=== PATIENT | female | born 1955 | race Caucasian/White ===

== ENCOUNTER → 2017-08-16 | Outpatient (CLI) | payer OTHER ==
[~2017-08-16] MED LIST: ESTR1VAG6 VG; EXE25PT PO; FLUO-176 PO; FLUO10TA24 PO; FLUO20TA2 PO; VEN75 PO; VENL37.53 PO; ZOST19404 IM
[2017-08-16 08:25] LABS: PLATELET COUNT, AUTOMATED 252 K/uL (150-450)
[2017-08-16 08:40] LABS: LDL CHOLESTEROL 115 mg/dl
== END ==
LOC: LAB 08:10
PROVIDERS: ATTEND Nurse Practitioner Family
DX: Z00.00 Encounter for general adult medical examination without abnormal findings (principal); Z79.899 Other long term (current) drug therapy; F41.8 Other specified anxiety disorders
CPT/HCPCS: 36415; 82040; 82247; 82310; 82374; 82435; 82465; 82565; 82947; 83718; 84075; 84132; 84155; 84295; 84443; 84450; 84460; 84478; 84520; 85025

== ENCOUNTER → 2017-10-11 | Outpatient (CLI) | payer OTHER ==
--- NOTE | 2017-10-11 10:05 | RADIOLOGY IMAGING REPORT ---
FACILITY: [facility] [place] PATIENT NAME: Sayra Davis : 1955 MR: [id number] V: [id number] EXAM DATE: ORDERING PHYSICIAN: HECTOR TORRES TECHNOLOGIST: Location: [facility] Patient: Sayra Davis : 1955 Visit/Account:[id number] Date of Sevice: 10/11/2017 DEXA Scan Clinical history: Postmenopausal screening. Comparison: DEXA scan from 03/31/2012. LUMBAR SPINE: The bone mineral density (BMD) measured from L1-L4 correlates with a Z-score of -1.3 and a T-score of -2.7 which is osteoporosis as defined by the World Health Organization. The corresponding risk of f racture in the lumbar spine is 6-8 times increased compared with a young adult reference population. This value has decrease by 5.7 % since the prior study. More than 5% change is considered significa nt. HIP: Bone mineral density (BMD) measured in the LEFT total hip region correlates with a Z-score -0.5 and a T-score of -1.5 which is osteopenia as defined by the World Health Organization. The corresponding risk of fracture in the hip is 3 times increased compared to a young adult reference population. This value has decrease by 4.9 % since the prior study. More than 5% change is considered significant. T score left femoral neck -2.1 Bone mineral density (BMD) measured in the Femoral Neck region measures 0.743 g/cm?. IMPRESSION: 1. Lumbar spine: Osteoporosis. There has been 5.7% decrease in the bone mineral density since the p revious exam. 2. Left Total Hip: Osteopenia. There has been a 4.9% decreased in the bone mineral density since th e previous exam. 3. Femoral Neck: Bone Mineral Density is 0.743 g/cm? The next DEXA scan of this patient should include the following sites: L1-L4 and the left hip. FRAX? WHO Fracture Risk Assessment Tool link: <http://www.shef.ac.uk/FRAX/tool.jsp?locationValue=9> PLEASE NOTE: 1) The World Health Organization defines low BMD as follows: T-score Normal > -1 Osteopenia < -1 and > -2.5 Osteoporosis < -2.5 without fractures Established osteoporosis < -2.5 with fractures 2) In general, you may wish to consider: Diagnosis Treatment Follow-up DEXA Normal BMD Prevention 2-3 years Osteopenia Prevention/therapy 1-2 years Osteoporosis Therapy Yearly 3) Fracture risk estimated from the T-score is more accurate for vertebral fractures (often spontane ous) than for hip fractures. Report Dictated By: Kristin Hansen MD at 10/11/2017 9:58 AM Report E-Signed By: Kristin Hansen MD at 10/11/2017 10:01 AM GUANACON:JOSE LUISVJanuary
== END ==
LOC: RAD 10-08 13:59
PROVIDERS: ATTEND Nurse Practitioner Family
DX: Z13.820 Encounter for screening for osteoporosis (principal); M81.0 Age-related osteoporosis without current pathological fracture; M85.88 Other specified disorders of bone density and structure, other site
CPT/HCPCS: 77080

== ENCOUNTER → 2019-03-02 | Outpatient (CLI) | payer OTHER ==
--- NOTE | 2019-03-02 15:28 | RADIOLOGY IMAGING REPORT ---
FACILITY: [facility] PATIENT NAME: Sayra Davis : 1955 MR: [id number] V: [id number] EXAM DATE: ORDERING PHYSICIAN: WENDY MCNAIR TECHNOLOGIST: Location: [facility] Patient: Sayra Davis : 1955 Visit/Account:[id number] Date of Sevice: 03/02/[address] scan without contrast COMPARISONS: None ADDITIONAL PERTINENT HISTORY: Concussion without loss of consciousness TECHNIQUE: Multiple axial images were obtained from the skull base to the vertex without IV contrast . One of the following dose optimization techniques was utilized in the performance of this exam: Aut omated exposure control; adjustment of the mA and/or kV according to the patient's size; or use of an iterative reconstruction technique. Specific details can be referenced in the facility's radiology CT exam operational policy. FINDINGS: Midline shift: Negative Ventricles: Negative Brain parenchyma: Negative Extra-axial spaces: Negative Intracranial vasculature: Mild cavernous internal carotid artery calcifications. Otherwise negative Osseous structures: Negative Paranasal sinuses and mastoid air cells: Negative Surrounding soft tissues and orbits: Negative IMPRESSION: 1. Mild age related changes as described above. 2. No evidence of acute intracranial pathology. Report Dictated By: Clinton Echols MD at 03/02/2019 3:16 PM Report E-Signed By: Clinton Echols MD at 03/02/2019 3:21 PM WSN:[id number]
== END ==
LOC: CT 14:48
PROVIDERS: ATTEND Family Medicine
DX: S06.0X0A Concussion without loss of consciousness, initial encounter (principal)
CPT/HCPCS: 70450